=== PATIENT | female | born 2005 | race Caucasian/White ===

== ENCOUNTER 2025-08-01 15:45 | Inpatient (IN) | payer OTHER, SELFPAY ==
[2025-08-01] VITALS (14 sets, daily range): BP systolic 114–168; BP diastolic 68–88; PULSE 77–100; RESP 16–20; TEMP 36.7–37.4; O2SAT 94–96; BMI 32.1
[2025-08-01] MEDS: Lactated Ringers 1,000 ML 999 ML IV (16:00)
[2025-08-01 16:19] LABS: Hematocrit 37.4 % (37-47); Hemoglobin 12.5 g/dL (12.0-15.0); Immature Granulocytes Count 0.050 X10^3/uL (0.0-0.0); Mean Corp Hgb Conc 33.4 g/dL (32-36); Mean Corpuscular Volume 84.0 fL (81-99); Mean Platelet Vol. 11.5 fl (6.2-12.0); NRBC Flagged by Analyzer 0 % (0-5); Platelet Count 168 K/mm3 (150-450); RBC Distribution Width CV 14.0 % (11.6-14.6); RBC Distribution Width SD 43.1 fl (35.1-43.9); Red Blood Count 4.45 M/mm3 (4.2-5.4); White Blood Count 12.2 K/mm3 (4.4-11.0)
[2025-08-01 16:57] LABS: Mucous, Urine 0 SEEN /hpf (<or=2+)
[2025-08-01 17:03] LABS: Color, Urine Straw (Yellow); Glucose, Dipstick Normal (Normal); Ketone-Dipstick Negative (Negative); Leukocyte Esterase-Dipstick 100 /ul (Negative); Nitrite-Dipstick Negative (Negative); Occult Blood-Urine 250 /ul (Negative); Protein-Dipstick 15 mg/dl (Negative); Specific Gravity, Urine 1.010 (1.002-1.030); Urine Bilirubin Dipstick Negative (Negative)
[2025-08-01] MEDS: Lactated Ringers 1,000 ML 200 ML IV ×2 (17:10→22:07)
[2025-08-01] MEDS: fentaNYL-bupivacaine (epidural) 100 ML BAG EPIDURAL ×2 (17:23→22:01)
[2025-08-01 17:36] LABS: Hepatitis C Antibody Nonreactive (Nonreactive)
[2025-08-01 17:46] LABS: AST(SGOT) 20 U/L (<=31); Alanine Aminotransfer ALT/SGPT 16 U/L (<=34); Albumin, Serum 3.7 g/dL (3.5-5.0); Alkaline Phosphatase 98 U/L (35-104); Anion Gap 13 (5-15); BUN 8 mg/dL (4-19); BUN/Creat Ratio 17.1 RATIO (10-20); Calcium,Total 9.4 mg/dL (7.6-11.0); Carbon Dioxide 22.8 mmol/L (21.0-32.0); Chloride 104 mmol/L (98-108); Estimated Creatinine Clearance 172.75 ml/min (50-250); Globulin 2.3 g/dL (2.2-4.2); Glucose 87 mg/dL (70-99); HIV Nonreactive (Nonreactive); Potassium 4.1 mmol/L (3.3-5.1); Syphilis Antibodies Nonreactive (Nonreactive)
[2025-08-01 18:09] LABS: Squamous Epithelial Cells - UA 10-25 SEEN /hpf (5-10)
[2025-08-01 18:10] LABS: Red Blood Cells-Urine 5-10 SEEN /hpf (0-5)
[2025-08-01 18:11] LABS: Transitional Epithelial - Ur 0-5 SEEN /hpf (0-5)
[2025-08-01 18:26] LABS: Hepatitis B Surface Antigen Nonreactive (Nonreactive); Syphilis Antibodies Nonreactive (Nonreactive)
--- NOTE | 2025-08-01 18:44 | HP.PCM.OB_ITS ---
HPI - General General Date of Admission: 08/01/25 Date of Service: 08/01/25 Chief Complaint: labor HPI Narrative ASHLY MARINELLI, is a 20 F who presents in active labor. 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 They were unable to get an adequate cervical exam due to a band of tissue noted in the vagina and patient intolerance to exams. Because of this and the patient's desire for an epidural, she was transferred to [facility]. She is GBS negative. is otherwise complicated by rubella non-immune status. labs are up-to-date. Maternal Data Information Final MCKENZIE: 07/30/25 Final MCKENZIE Source: LMP Gestational age: 40w2d [facility] Medical History (Updated 08/01/25 @ 19:[address] Genoveva Coyle DO) Depression Medical History no medical history Home Medications ?Medication ?Instructions ?Recorded ?Last Taken ?Type docosahexaenoic acid PO 08/01/25 History Allergy/AdvReac Type Severity Reaction Status Date / Time No Known Allergies Allergy Verified 08/01/25 16:14 Family History (Updated 08/01/25 @ 18:35 by Craig Villanueva) Brother Colon cancer Sister Brain cancer Surgical History (Updated 08/01/25 @ 19:[address] Genoveva Coyle DO) No pertinent past surgical history Surgical History no surgical history Social History Smoking Status: Never smoker History 1 Elective abortions 0 Hx Para 0 Spontaneous abortions 0 Hx # Term Pregnancies 0 Ectopic pregnancies 0 Hx # Pregnancies 0 Multiple births 0 # of living children 0 NST FHR Rate Baby A Baseline: 150 Variability:: Moderate Accelerations:: 15 x 15 Decelerations:: Early, Late (isolated) and Variable (intermittent) NST Reactive:: Yes FHR Category:: Category II (variability and accelerations reassuring) Uterine Activity:: q2-4 min ROS ROS Narrative see HPI above Vital Signs Vital Signs Vital Signs: 08/01/25 16:12 08/01/25 16:12 08/01/25 16:12 Temperature Pulse Rate 83 Respiratory Rate 20 H Blood Pressure 168/77 H BP Systolic 168 BP Diastolic 77 08/01/25 16:12 08/01/25 16:14 08/01/25 16:14 Temperature 98.0 F Pulse Rate 82 Respiratory Rate Blood Pressure 148/70 H BP Systolic 148 BP Diastolic 70 08/01/25 17:14 08/01/25 17:14 08/01/25 17:19 Temperature Pulse Rate 80 Respiratory Rate Blood Pressure 134/82 H 134/80 H BP Systolic 134 134 BP Diastolic 82 80 08/01/25 17:19 08/01/25 17:19 08/01/25 17:30 Temperature Pulse Rate 83 Respiratory Rate 20 H Blood Pressure 122/76 H BP Systolic 122 BP Diastolic 76 08/01/25 17:30 08/01/25 17:30 08/01/25 17:35 Temperature Pulse Rate 95 Respiratory Rate 18 Blood Pressure 135/82 H BP Systolic 135 BP Diastolic 82 08/01/25 17:35 08/01/25 17:35 08/01/25 17:39 Temperature Pulse Rate 88 Respiratory Rate 17 Blood Pressure 132/78 H BP Systolic 132 BP Diastolic 78 08/01/25 17:39 08/01/25 17:44 08/01/25 17:44 Temperature Pulse Rate 93 96 Respiratory Rate Blood Pressure 126/81 H BP Systolic 126 BP Diastolic 81 08/01/25 17:49 08/01/25 17:49 Temperature Pulse Rate 91 Respiratory Rate Blood Pressure 124/79 H BP Systolic 124 BP Diastolic 79 Weight Weight: 170 lb Body Mass Index (BMI) 32.1 PRE- weight 125 lb PRE- Body Mass Index 23.6 (BMI) Physical Exam Const alert and well nourished General Appearance: comfortable HEENT normocephalic Head and Scalp: atraumatic Neck full ROM and supple Resp normal respiratory effort and no use of accessory muscles GI soft to palpation Inspection: gravid external exam normal Manual OB Exam: dilated 5, effaced 70 and station -2 Psych mental status grossly normal and affect normal Labs Labs Labs: Blood Type A POSITIVE Antibody Screen NEGATIVE Hct, (37-47) 37.4 % Hgb, (12.0-15.0) 12.5 g/dL Syphilis Total Ab, (Nonreactive) Nonreactive Rubella IgG Antibody, (Nonreactive) Nonreactive Hep Bs Antigen, (Nonreactive) Nonreactive Hepatitis C Antibody, (Nonreactive) Nonreactive HIV 1&2 Antibody, (Nonreactive) Nonreactive Assessment & Plan (1) Labor and delivery indication for care or intervention: PLAN: Patient presents IAL, plan expectant management for , pitocin/AROM PRN if needed. Pain management: epidural. GBS negative. Management of any complications: none I have reviewed the [facility] and made any clinically relevant updates. (2) Rubella non-immune status, antepartum: PLAN: offer MMR (3) Elevated blood pressure reading without diagnosis of hypertension: PLAN: BP recorded at visits wnl isolated severe range during a contraction and a few mild range BP today, not yet meeting criteria for gestational hypertension CBC and CMP without evidence of end organ damage
[2025-08-01] MEDS: LACTATED RINGERS 500 ML 999 ML IV ×2 (20:31→22:04)
--- NOTE | 2025-08-01 22:59 | PN_ITS ---
Progress Note Patient comfortable with epidural. AROM @2011 for small amount of clear fluid. Assessment & Plan Assessment/Plan (1) Labor and delivery indication for care or intervention: PLAN: Plan Category II due to periods of minimal variability and intermittent and non- severe variable decelerations. Acceleration with scalp stim reassuring. Resuscitative measures: position changes and fluid boluses. Patient continues to make cervical change. Continue to monitor. NST FHR Rate Baby A Baseline: 150 Variability:: Minimal and Moderate Accelerations:: 15 x 15 Decelerations:: Early, Late and Variable NST Reactive:: Yes FHR Category:: Category II Uterine Activity:: q2-3 min
[2025-08-01 23:32] LABS: Creatinine, Urine (random) 36.90 mg/dL (28.00-217.00); Protein, Urine (Random) 14.5 mg/dL (0.0-12.0); Protein:Creat Ratio 393 mg/g CRE (0-200)
[2025-08-01 23:35] LABS: Barbiturate Urine NEGATIVE (< 200 ng/mL); Benzodiazepine Urine NEGATIVE (< 200 ng/mL); PCP Urine NEGATIVE (< 25 ng/mL); THC Urine NEGATIVE (< 50 ng/mL)
--- NOTE | 2025-08-01 23:57 | PN.OBGYN_ITS ---
Subjective Subjective Meets criteria for preeclampsia without severe features due to mild range BP > 4 hours apart and UPC of 0.39 asymptomatic, no severe features at this time Objective Data Objective Data Vital Signs: Vital Signs Temp Pulse Resp BP Pulse Ox 99.0 F 77 16 140/88 H 94 08/01/25 22:59 08/01/25 22:59 08/01/25 22:59 08/01/25 22:59 08/01/25 20:46 Weight: 170 lb Body Mass Index (BMI) 32.1 Intake & Output: Intake and Output for Last 24 Hours 07/30/25 07/31/25 08/01/25 23:59 23:59 23:59 Intake Total 2990 / 2990 Output Total 300 / 300 Balance 2690 / 2690 Lab / Micro Data 08/01/25 16:00 08/01/25 16:00 Labs: Laboratory Results - last 24 hr 08/01/25 16:00: WBC 12.2 H, RBC 4.45, Hgb 12.5, Hct 37.4, MCV 84.0, MCH 28.1, MCHC 33.4, RDW Std Deviation 43.1, RDW Coeff of Iza 14.0, Plt Count 168, MPV 11.5, Immature Gran % (Auto) 0.400, Neut % (Auto) 75.1 H, Lymph % (Auto) 14.7 L, [place] % (Auto) 8.9, Eos % (Auto) 0.7, Baso % (Auto) 0.2, Absolute Neuts (auto) 9.2 H, Absolute Lymphs (auto) 1.80, Nucleated RBC % 0, Sodium 140, Potassium 4.1, Chloride 104, Carbon Dioxide 22.8, Anion Gap 13, BUN 8, Creatinine 0.48 L, Estim Creat Clear Calc 172.75, Est GFR (MDRD) Non-Af 137, BUN/Creatinine Ratio 17.1, Glucose 87, Hemoglobin A1c 5.5, Calcium 9.4, Total Bilirubin 0.23, AST 20, ALT 16, Alkaline Phosphatase 98, Total Protein 5.9, Albumin 3.7, Globulin 2.3, Albumin/Globulin Ratio 1.6, Syphilis Total Ab Nonreactive 08/01/25 16:00: Syphilis Total Ab Nonreactive, Hep Bs Antigen Nonreactive, Hepatitis C Antibody Nonreactive, HIV 1&2 Antibody Nonreactive, Rubella IgG Antibody Nonreactive, Blood Type A POSITIVE, Antibody Screen NEGATIVE 08/01/25 16:40: Urine Color Straw, Urine Clarity Sl. Cloudy, Urine pH 7.0, Ur Specific [place] 1.010, Urine Protein 15 H, Urine Glucose (UA) Normal, Urine Ketones Negative, Urine Occult Blood 250 H, Urine Nitrite Negative, Urine Bilirubin Negative, Urine Urobilinogen Normal, Ur Leukocyte Esterase 100 H, Urine RBC 5-10 SEEN, Urine WBC 5-10 SEEN, Ur Squamous Epith Cells 10-25 SEEN, Ur Transition Epith Cell 0-5 SEEN, Urine Bacteria RARE, Urine Mucus 0 SEEN, U Random Total Protein 14.5 H, Urine Creatinine 36.90, Protein/Creatinin Ratio 393 H, Urine Opiates Screen NEGATIVE, U Buprenorphine Qual NEGATIVE, Ur Oxycodone Screen NEGATIVE, Urine Methadone Screen NEGATIVE, Urine Fentanyl Screen NEGATIVE, Ur Barbiturates Screen NEGATIVE, Ur Phencyclidine Scrn NEGATIVE, Ur Amphetamines Screen NEGATIVE, U Benzodiazepines Scrn NEGATIVE, Urine Cocaine Screen NEGATIVE, U Cannabinoids Screen NEGATIVE, Ur Drug Screen Comment
[2025-08-02] VITALS (32 sets, daily range): BP systolic 109–158; BP diastolic 56–103; PULSE 74–109; RESP 14–17; TEMP 36.4–39.1; O2SAT 84–130
[2025-08-02] MEDS: LACTATED RINGERS 500 ML 999 ML IV (01:06)
[2025-08-02] MEDS: Gentamicin IV 240 MG in Dextrose 5%-Water (50mL Bag) 50 ML 100 MG IV (01:48)
[2025-08-02] MEDS: Ampicillin 2 GM in 0.9% Normal Saline (100mL MB+) 100 ML IV ×2 (02:49→13:21)
[2025-08-02] MEDS: fentaNYL-bupivacaine (epidural) 100 ML BAG EPIDURAL (03:45)
--- NOTE | 2025-08-02 05:08 | PN.OBGYN_ITS ---
Subjective Subjective Patient has been pushing for ~3 hours with minimal descent. Maternal fever (102.3) and tachycardia (170-180s) noted during pushing so patient was treated with tylenol, ampicillin, and gentamicin for intraamniotic infection. FHT category II due to tachycardia and intermittent variable and late decelerations with pushing. Moderate variability and accelerations still present. Discussed with patient concern with lack of progress and well- being. station too high to safely vacuum so delivery was recommended. Patient and her are agreeable to this plan. Objective Data Objective Data Vital Signs: Vital Signs Temp Pulse Resp BP Pulse Ox 98.7 F 91 16 147/82 H 84 08/02/25 03:47 08/02/25 05:00 08/02/25 03:47 08/02/25 04:47 08/02/25 05:00 Weight: 170 lb Body Mass Index (BMI) 32.1 Intake & Output: Intake and Output for Last 24 Hours 07/31/25 08/01/25 08/02/25 23:59 23:59 23:59 Intake Total 2990 / 2990 656 / 656 Output Total 300 / 300 Balance 2690 / 2690 656 / 656 Lab / Micro Data 08/01/25 16:00 08/01/25 16:00 Labs: Laboratory Results - last 24 hr 08/01/25 16:00: WBC 12.2 H, RBC 4.45, Hgb 12.5, Hct 37.4, MCV 84.0, MCH 28.1, MCHC 33.4, RDW Std Deviation 43.1, RDW Coeff of Iza 14.0, Plt Count 168, MPV 11.5, Immature Gran % (Auto) 0.400, Neut % (Auto) 75.1 H, Lymph % (Auto) 14.7 L, [place] % (Auto) 8.9, Eos % (Auto) 0.7, Baso % (Auto) 0.2, Absolute Neuts (auto) 9.2 H, Absolute Lymphs (auto) 1.80, Nucleated RBC % 0, Sodium 140, Potassium 4.1, Chloride 104, Carbon Dioxide 22.8, Anion Gap 13, BUN 8, Creatinine 0.48 L, Estim Creat Clear Calc 172.75, Est GFR (MDRD) Non-Af 137, BUN/Creatinine Ratio 17.1, Glucose 87, Hemoglobin A1c 5.5, Calcium 9.4, Total Bilirubin 0.23, AST 20, ALT 16, Alkaline Phosphatase 98, Total Protein 5.9, Albumin 3.7, Globulin 2.3, Albumin/Globulin Ratio 1.6, Syphilis Total Ab Nonreactive 08/01/25 16:00: Syphilis Total Ab Nonreactive, Hep Bs Antigen Nonreactive, Hepatitis C Antibody Nonreactive, HIV 1&2 Antibody Nonreactive, Rubella IgG Antibody Nonreactive, Blood Type A POSITIVE, Antibody Screen NEGATIVE 08/01/25 16:40: Urine Color Straw, Urine Clarity Sl. Cloudy, Urine pH 7.0, Ur Specific [place] 1.010, Urine Protein 15 H, Urine Glucose (UA) Normal, Urine Ketones Negative, Urine Occult Blood 250 H, Urine Nitrite Negative, Urine Bilirubin Negative, Urine Urobilinogen Normal, Ur Leukocyte Esterase 100 H, Urine RBC 5-10 SEEN, Urine WBC 5-10 SEEN, Ur Squamous Epith Cells 10-25 SEEN, Ur Transition Epith Cell 0-5 SEEN, Urine Bacteria RARE, Urine Mucus 0 SEEN, U Random Total Protein 14.5 H, Urine Creatinine 36.90, Protein/Creatinin Ratio 393 H, Urine Opiates Screen NEGATIVE, U Buprenorphine Qual NEGATIVE, Ur Oxycodone Screen NEGATIVE, Urine Methadone Screen NEGATIVE, Urine Fentanyl Screen NEGATIVE, Ur Barbiturates Screen NEGATIVE, Ur Phencyclidine Scrn NEGATIVE, Ur Amphetamines Screen NEGATIVE, U Benzodiazepines Scrn NEGATIVE, Urine Cocaine Screen NEGATIVE, U Cannabinoids Screen NEGATIVE, Ur Drug Screen Comment
[2025-08-02] MEDS: fentaNYL 100 MCG/2 ML Ampul EPIDURAL (05:32)
[2025-08-02] MEDS: morphine PF (epidural) 5 MG/10 ML Vial 3 MG EPIDURAL (06:25)
[2025-08-02] MEDS: fentaNYL 100 MCG/2 ML Ampul IV (06:36)
[2025-08-02] MEDS: Midazolam 2 MG/2 ML Syringe IV (06:39)
[2025-08-02] MEDS: Lidocaine 2% (5ml sdv) 5 ML VIAL.MPF 25 ML EPIDURAL (06:47)
--- NOTE | 2025-08-02 07:26 | PCM.POST.ANE ---
Anesthesia: Postop Eval I Current Vital Signs Temperature: 98 F Pulse Rate: 90 Blood Pressure: 137/103 Respiratory Rate: 16 Pulse Ox: 100 Oxygen Delivery Method: Room Air Assessment Airway patent: Yes Spontaneous unlabored respirations: Yes Mental status: Awake and Calm nausea: No Vomiting: No Anesthesia Complication: No Fluid Hydration Crystalloid volume administer (ml): 1,500 Total IV fluid infused: 1,500 Progress Note Anesthesia document: Postop Eval 1 completed: Yes
[2025-08-02] MEDS: Cefazolin 1 GM/5 ML Vial 4 GM IV (07:29)
--- NOTE | 2025-08-02 07:36 | POSTOPAN2_ITS ---
Anesthesia Postop Eval I Sum Postop Eval Completion status Anesthesia document: Postop Eval 1 completed: Yes Anesthesia Postop Eval I Summary Anesthesia Postop Eval I Summary: Anesthesia Postop Eval I: Assessment Summary Airway patent Yes 08/02/25 07:26 [email or web address] Spontaneous unlabored Yes 08/02/25 07:26 [email or web address] respirations Mental status Awake,Calm 08/02/25 07:26 [email or web address] nausea No 08/02/25 07:26 [email or web address] Vomiting No 08/02/25 07:26 [email or web address] Anesthesia Postop Eval I: Fluid Summary Crystalloid volume administer 1,500 08/02/25 07:26 [email or web address] (ml) Colloids volume administered ( ml) Blood Product volume administered (ml) Total IV fluid infused 1,500 08/02/25 07:26 [email or web address] Anesthesia Postop Eval I: Summary Notes Anesthesia Complication No 08/02/25 07:26 [email or web address] Anesthesia Complication Comment: Post-operative progress note Anesthesia: Postop Eval II Evaluation Mental status: Awake and Calm Pain Level: 0 nausea: No Vomiting: No Complications Anesthesia Complication: No
--- NOTE | 2025-08-02 07:36 | PCM.POSTANE2 ---
Anesthesia Postop Eval I Sum Postop Eval Completion status Anesthesia document: Postop Eval 1 completed: Yes Anesthesia Postop Eval I Summary Anesthesia Postop Eval I Summary: Anesthesia Postop Eval I: Assessment Summary Airway patent Yes 08/02/25 07:26 [email or web address] Spontaneous unlabored Yes 08/02/25 07:26 [email or web address] respirations Mental status Awake,Calm 08/02/25 07:26 [email or web address] nausea No 08/02/25 07:26 [email or web address] Vomiting No 08/02/25 07:26 [email or web address] Anesthesia Postop Eval I: Fluid Summary Crystalloid volume administer 1,500 08/02/25 07:26 [email or web address] (ml) Colloids volume administered ( ml) Blood Product volume administered (ml) Total IV fluid infused 1,500 08/02/25 07:26 [email or web address] Anesthesia Postop Eval I: Summary Notes Anesthesia Complication No 08/02/25 07:26 [email or web address] Anesthesia Complication Comment: Post-operative progress note Anesthesia: Postop Eval II Evaluation Mental status: Awake and Calm Pain Level: 0 nausea: No Vomiting: No Complications Anesthesia Complication: No
[2025-08-02] MEDS: Oxytocin 15 Units/NS 250ml 15 UNITS/250 ML IV.SOLN 83 UNITS IV (07:45)
--- NOTE | 2025-08-02 08:36 | OP.PCM_ITS ---
Maternal Data Information MCKENZIE Calculator Estimated Delivery Date Method Current WG Current Estimate 07/30/25 Manual 40w 3d Gestational age: 40w3d Doctor Who Attended Delivery: Rozina Franks Operative Report (OB) Procedure Details Date of Procedure: 08/02/25 Procedure Start Time: 05:59 Procedure Stop Time: 07:35 Pre-Operative Diagnosis: Failure of Descent, Nonreassuring Status, Suspected chorioamnionitis (Suspected Triple I), Suspected cephalopelvic disproportion and Other Other Pre-Operative diagnosis: preeclampsia without severe features Post-Operative Diagnosis: Same as Pre-operative diagnosis Classification: JACE Type of Anesthesia: Epidural Antibiotic Given: Ancef 2 grams IV x1 (re-dosed for EBL), Clindamycin 600mg IV x1 and Gentamicin 1.5mg/kg IV x1 and Other (ampicillin 2g IV q6h) Drain: Waters to straight drain Estimated Blood Loss: 1500 Findings Description of surgery: Lorene Jameson is a 20-year-old, now , who presented at 40w2d as a transfer from a midwifery care center in active labor. She was GBS negative. was complicated by rubella non-immune status. She received an epidural for maternal analgesia. AROM was performed to augment labor. Intrapartum, she met criteria for intraamniotic infection with maternal fever and tachycardia and was treated with tylenol and antibiotics. She also met criteria for preeclampsia without severe features due to elevated blood pressures >4 hours apart and a UPC of 0.39. She progressed to complete cervical dilation and pushed for approximately 3 hours with little descent of head. Also during pushing a hymenal laceration occurred which became hemostatic on its own. Due to failure of descent with too high of a station for safe operative delivery and a category II FHT, primary was recommended and accepted. Her epidural anesthesia was redosed adequately initially. Waters catheter was placed. pillow was placed. The patient was placed in the dorsal supine position with leftward tilt. Patient was prepped and draped in the normal sterile fashion. Pfannenstiel skin incision was made with the scalpel and carried through to the underlying layer of fascia with the scalpel. Fascia was nicked in the midline and the incision extended laterally. The rectus bellies were dissected off superiorly and inferiorly with out complication both sharply and bluntly. The peritoneum was entered digitally. The incision was stretched and a low transverse uterine incision was made with the scalpel. There was difficulty disimpacting the head. The pillow was removed and a hand from below was requested without successful delivery of the head. Dr. Bajwa was called to the OR for assistance and then infant's head was delivered followed by the anterior and posterior shoulders without complication the rest of the delivered. The cord was immediately clamped and cut and the was handed off to awaiting nurse. The placenta was delivered spontaneously immediately following and was noted to be intact and have a three- vessel cord. The uterus was exteriorized cleared of all clots and debris. The angles of the cervical extension were identified and closed with 0 Vicryl. The hysterotomy was closed in a double layer closure using 0 Vicryl. Several [id number] stitches at the hysterotomy angles + broad ligament defect and oversewing of the cervical extension were done with 0 Vicryl and #1 Monocryl to ensure hemostasis. There was a stitch noted through the epiploica of the sigmoid colon which was removed and examined, demonstrating no damage to the lumen of the colon therefore not requiring repair. The ovaries and fallopian tubes were noted to be within normal limits. The uterus was returned to the maternal abdomen and gutters were cleared of all clots and debris. The peritoneum was closed with 3-0 Monocryl in a running fashion. Gloves were changed prior to fascial closure. Fascia was closed with 0 PDS in a running fashion. Subcutaneous tissue was copiously irrigated and the skin was closed with 3-0 Monocryl in a subcuticular fashion. Mepilex dressing was applied without complication. The patient was then placed in dorsal lithotomy to re-evaluate the hymenal laceration which remained hemostatic and was therefore not repaired. Antibiotics were re-dosed due to EBL of 1500 cc. Patient was taken to recovery in stable condition. Surgical findings: extensions of hysterotomy laterally and on cervix, defect in broad ligament normal appearing tubes and ovaries liveborn male infant Presentation: ROP Amniotic Membrane Rupture Type: Artificial Amniotic Fluid Description: Clear and Lightly stained meconium Placental Delivery Description: Spontaneous Placenta Disposition: Sent with transport team Specimen collected: Yes Description of specimen(s) removed: placenta Cord Vessel Description: 3 Vessels Cord Entanglement: None Infant A gender: Male (1 minute): 1 (5 minute): 8 Delayed Cord Clamping: No Calendar Control Clerk Blood Bank bottle carrier: Yes Reimbursement Specialist: Stacey Bajwa Tasks completed by child nutrition assistant: Other (delivery of head, repair of hysterotomy extensions) Additional assistant front office manager?: Yes Additional General Maintenance Technician #2: Carla Coto Tasks completed by assistant front office manager #2: Opening & closing, Hemostasis: Clamp and Retracting Complications Complications: Yes Complication Details: deeply impacted head, cervical and hysterotomy extensions, broad ligament defect
--- NOTE | 2025-08-02 09:20 | NURSING ---
documentation revised by Berta after speaking with Mitra Hein by phone, removed check kamilah entered in error.
[2025-08-02] MEDS: Lactated Ringers 1,000 ML 100 ML IV (11:24)
[2025-08-02] MEDS: 0.9% Saline Lock 10 ML Syringe IV (14:20)
[2025-08-02] MEDS: Ketorolac 30 MG/ML Syringe IV ×2 (14:20→20:37)
[2025-08-03 00:13] VITALS: BP 103/64; PULSE 70; RESP 16; TEMP 36.6; O2SAT 97
[2025-08-03] MEDS: Ketorolac 30 MG/ML Syringe IV (03:49)
[2025-08-03 04:20] VITALS: BP 109/78; PULSE 80; RESP 18; TEMP 36.7; O2SAT 97
[2025-08-03 06:52] LABS: Hematocrit 26.6 % (37-47); Hemoglobin 8.7 g/dL (12.0-15.0); Mean Corp Hgb Conc 32.7 g/dL (32-36); Mean Corpuscular Volume 84.7 fL (81-99); Mean Platelet Vol. 10.6 fl (6.2-12.0); Platelet Count 113 K/mm3 (150-450); RBC Distribution Width CV 14.5 % (11.6-14.6); RBC Distribution Width SD 44.9 fl (35.1-43.9); Red Blood Count 3.14 M/mm3 (4.2-5.4); White Blood Count 15.4 K/mm3 (4.4-11.0)
--- NOTE | 2025-08-03 08:24 | PCM.PN.BLA ---
Progress Note Patient doing well without complaints. No nausea with PO intake but some abdominal discomfort. Feeling sore. Not yet passing flatus or urinating spontaneously. Has not ambulated much. Denies chest pain, shortness of breath, calf pain/swelling, fevers, chills, lightheadedness. Was told baby is doing well at [facility] and will probably stay there 3-5 days. Physical Exam Const alert, oriented x3 and no apparent distress HEENT Head and Scalp: normocephalic and atraumatic Resp normal respiratory effort Effort and Inspection: able to speak in complete sentences and symmetric chest movement Cardio regular rate and regular rhythm GI soft to palpation and non-tender Inspection: incision intact, healing well and drainage (none) Bimanual Exam - Vag & Uterus: uterus non-tender Uterus Palpation: uterus fundus firm (below Umbilicus) Assessment & Plan Assessment/Plan (1) delivery delivered: PLAN: s/p LTCS PPD # 1 1. routine post care 2. breast feeding- support given 3. rh positive 4. rubella non-immune, offer MMR vaccine 5. awaiting spontaneous void (2) Pre-eclampsia affecting , antepartum: PLAN: -met criteria intrapartum for preeclampsia without severe features with mild range BP >4 hours apart and UPC of 0.39 -CBC and CMP without signs of end organ damage -BP since delivery normal to mild range -discussed with patient continued admission to monitor BP, she and FOB voiced understanding (3) hemorrhage: QUALIFIERS: hemorrhage type: other immediate Qualified Code(s): O72.1 - Other immediate hemorrhage PLAN: -EBL 1500cc due to length of delivery and hysterotomy closure -hgb 12.5 -> 8.7 -patient asymptomatic currently -discussed iron infusion if symptomatic during the day
[2025-08-03 08:44] VITALS: BP 126/89; PULSE 79; RESP 16; TEMP 36; O2SAT 99
[2025-08-03] MEDS: Senna/Docusate Sodium 1 Tablet PO (09:50)
[2025-08-03 13:59] VITALS: BP 126/79; PULSE 77; RESP 16; TEMP 36.1; O2SAT 98
[2025-08-03 20:05] VITALS: BP 137/98; PULSE 70; RESP 16; TEMP 36.6; O2SAT 100
[2025-08-04 02:00] VITALS: BP 136/93; PULSE 77; RESP 16; TEMP 36.1; O2SAT 100
[2025-08-04 07:42] VITALS: BP 130/94; PULSE 70; RESP 16; TEMP 36.5; O2SAT 99
[2025-08-04 09:30] VITALS: BP 127/86
[2025-08-04] MEDS: NIFEdipine 30 MG Tablet PO (09:46)
[2025-08-04] MEDS: Senna/Docusate Sodium 1 Tablet PO (09:47)
--- NOTE | 2025-08-04 10:00 | PCM.DC ---
Discharge Instructions DC O2, CPAP, BIPAP needs Home O2 Discharge instructions: No Dressing / Incision Discharge Activity: May Shower May shower in (days): 0 May resume sexual activity in: 6-8 weeks Weight Bearing Status: Weight bearing as tolerated Lifting Restrictions: notihng greater than 15 lbs Dressing / Incision Call your doctor if your incision/area has: Continuous Slow Oozing, Sudden Increased Bleeding, Increased Pain/ Swelling, Increased Redness and Foul Smelling Discharge Call your doctor if you observe: Fever of 101 or Higher and Using more than 1 pad per hour (for 2 hours) Suture Line Care: Avoid Pulling/Pushing and Avoid Pinching/Bending Remove Dressing in: 1 week Cleanse incision/area with: Soap & Water and Keep Dressing Clean & Dry Follow Up Care When: Follow-up next Wednesday for a BP check and then an incision check in 1-2 weeks. Test Results: Test results from this visit will be discussed in further detail at your follow-up appointment, if applicable. Discharge Plan Admission Admit Date/Time: 08/01/25 15:45 Primary Reason for Your Visit: labor and delivery Attending Provider: Genoveva Coyle Primary Care Provider: Valeria Edwards NP Instructions Additional Instructions / Restrictions: Please start taking your blood pressure medication, Procardia XL 30mg daily, and check your blood pressure at least 2 times a day. If you check you blood pressure and your systolic (top number) is >160 or your diastolic (bottom number) is >110, then you should be seen at OB triage. The accurate way to take a blood pressure: ? Don?t eat or drink anything 30 minutes before you take your blood pressure. ? Empty your bladder before your reading. ? Sit in a comfortable chair with your back supported for at least 5 minutes before your reading. ? Put both feet flat on the ground and keep your legs uncrossed. ? Rest your arm with the cuff on a table at chest height. ? Make sure the blood pressure cuff is snug but not too tight. The cuff should be against your bare skin, not over clothing. ? Do not talk while your blood pressure is being measured. What are the symptoms of preeclampsia? Most women with preeclampsia do not feel any different than usual. Preeclampsia usually does not cause symptoms unless it is severe. Signs and symptoms of severe preeclampsia include: ? A severe headache that does not improve with Tylenol or medication ? Changes in vision: blurry vision, flashes of light, spots ? Abdominal pain: especially in the upper belly ? Shortness of breath at rest ? Chest pain If you have any of these symptoms, check your blood pressure and call the office to speak to the production pattern maker physician. Please follow up in the office on Wednesday for a blood pressure check. Discharge Orders/Prescriptions Prescriptions: New nifedipine 30 mg Tablet Extended Release 24hr 30 mg PO DAILY 90 Days Qty: 90 0RF acetaminophen 500 mg Tablet 1,000 mg PO Q6 14 Days Qty: 112 0RF ibuprofen 600 mg Tablet 600 mg PO Q6H 14 Days Qty: 56 0RF oxycodone 5 mg tablet 5 mg PO Q6H PRN (Reason: pain) 3 Days Qty: 14 0RF (DME) Blood Pressure Cuff Misc See Rx Instructions .Route Qty: 1 0RF Rx Instructions: twice a day Continued docosahexaenoic acid [ DHA] PO Referrals / Follow Up: Valeria Edwards TIN FLOPPER, TIN FLOPPER-C [Primary Care Provider, Medical] Disposition Disposition (needs filled in before D/C Order can be placed): Home, Self Care
--- NOTE | 2025-08-04 10:23 | PCM.PN.BLA ---
Progress Note Patient doing well without complaints. Pain is better controlled today. Tolerating PO. Ambulating and voiding without difficulty. Passing flatus. Denies chest pain, shortness of breath, calf pain/swelling, fevers, chills, lightheadedness. Would like to be discharged today to make it to her brother's and see the baby at [place]. Physical Exam Const alert, oriented x3 and no apparent distress HEENT Head and Scalp: normocephalic and atraumatic Resp normal respiratory effort Effort and Inspection: able to speak in complete sentences and symmetric chest movement Cardio regular rate and regular rhythm GI soft to palpation and non-tender Inspection: incision intact, healing well and drainage (none) Bimanual Exam - Vag & Uterus: uterus non-tender Uterus Palpation: uterus fundus firm (below Umbilicus) Assessment & Plan Assessment/Plan (1) delivery delivered: PLAN: s/p LTCS PPD # 2 1. routine post care 2. breast feeding- support given 3. rh positive 4. rubella non-immune, offer MMR 5. d/c today with close follow-up (2) Pre-eclampsia affecting , antepartum: PLAN: -BP have been normal to mild range -Will start Procardia XL 30mg daily -BP cuff ordered and patient advised to check BP 2x/day and if feeling symptomatic -Preeclampsia precautions reviewed extensively, can go to [place] [facility] if visiting baby -Patient will follow up in the office for a BP check on Wednesday
--- NOTE | 2025-08-04 10:28 | PCM.DC.SUM ---
Providers Date of Admission: 08/01/25 Primary Care Physician: Valeria Edwards, MEDICAL OFFICE MANAGER-C Reason For Visit: PRIM CSECTION DELIVERY Diagnosis Discharge Diagnosis (1) delivery delivered: Status: Acute Code(s): O82 - Encounter for delivery without indication Plan: s/p LTCS PPD # 2 1. routine post care 2. breast feeding- support given 3. rh positive 4. rubella non-immune, offer MMR 5. d/c today with close follow-up (2) Pre-eclampsia affecting , antepartum: Status: Acute Code(s): O14.90 - Unspecified pre-eclampsia, unspecified trimester Plan: -BP have been normal to mild range -Will start Procardia XL 30mg daily -BP cuff ordered and patient advised to check BP 2x/day and if feeling symptomatic -Preeclampsia precautions reviewed extensively, can go to [place] ED if visiting baby -Patient will follow up in the office for a BP check on Wednesday Medications at Discharge Home Medications docosahexaenoic acid PO 08/01/25 acetaminophen 500 mg tablet 1,000 mg (2 x 500 mg) PO Q6 14 days #112 tabs 08/04/25 ibuprofen 600 mg tablet 600 mg PO Q6H 14 days #56 tabs 08/04/25 miscellaneous medical supply (Blood Pressure Cuff) #1 ea 08/04/25 nifedipine 30 mg tablet,extended release 24 hr 30 mg PO DAILY 90 days #90 tabs 08/04/25 oxycodone 5 mg tablet 5 mg PO Q6H PRN pain 3 days #14 tabs 08/04/25 Weight / BMI Weight Weight: 170 lb Body Mass Index (BMI) 32.1 PRE- weight 125 lb PRE- Body Mass Index 23.6 (BMI) ABG / Lab / Microbiology Data 08/03/25 06:45 08/01/25 16:00 D/C Instructions May shower in (days): 0 May resume sexual activity in: 6-8 weeks Weight Bearing Status: Weight bearing as tolerated Call your doctor if your incision/area has: Continuous Slow Oozing, Sudden Increased Bleeding, Increased Pain/ Swelling, Increased Redness and Foul Smelling Discharge Call your doctor if you observe: Fever of 101 or Higher and Using more than 1 pad per hour (for 2 hours) Suture Line Care: Avoid Pulling/Pushing and Avoid Pinching/Bending Cleanse incision/area with: Soap & Water and Keep Dressing Clean & Dry DC O2, CPAP, BIPAP Needs Home O2 Discharge instructions: No When: Follow-up next Wednesday for a BP check and then an incision check in 1-2 weeks. Meaningful Use Info Meaningful Use Meaningful Use Diagnoses (Choose all that apply): None applicable Discharge Plan Admission Admit Date/Time: 08/01/25 15:45 Primary Reason for Your Visit: labor and delivery Attending Provider: Genoveva Coyle Primary Care Provider: Valeria Edwards MEDICAL OFFICE MANAGER Instructions Patient Instructions: After a Delivery (WP) Additional Instructions / Restrictions: Please start taking your blood pressure medication, Procardia XL 30mg daily, and check your blood pressure at least 2 times a day. If you check you blood pressure and your systolic (top number) is >160 or your diastolic (bottom number) is >110, then you should be seen at OB triage. The accurate way to take a blood pressure: ? Don?t eat or drink anything 30 minutes before you take your blood pressure. ? Empty your bladder before your reading. ? Sit in a comfortable chair with your back supported for at least 5 minutes before your reading. ? Put both feet flat on the ground and keep your legs uncrossed. ? Rest your arm with the cuff on a table at chest height. ? Make sure the blood pressure cuff is snug but not too tight. The cuff should be against your bare skin, not over clothing. ? Do not talk while your blood pressure is being measured. What are the symptoms of preeclampsia? Most women with preeclampsia do not feel any different than usual. Preeclampsia usually does not cause symptoms unless it is severe. Signs and symptoms of severe preeclampsia include: ? A severe headache that does not improve with Tylenol or medication ? Changes in vision: blurry vision, flashes of light, spots ? Abdominal pain: especially in the upper belly ? Shortness of breath at rest ? Chest pain If you have any of these symptoms, check your blood pressure and call the office to speak to the career technical education instructor physician. Please follow up in the office on Wednesday for a blood pressure check. Discharge Orders/Prescriptions Prescriptions: New nifedipine 30 mg Tablet Extended Release 24hr 30 mg PO DAILY 90 Days Qty: 90 0RF acetaminophen 500 mg Tablet 1,000 mg PO Q6 14 Days Qty: 112 0RF ibuprofen 600 mg Tablet 600 mg PO Q6H 14 Days Qty: 56 0RF oxycodone 5 mg tablet 5 mg PO Q6H PRN (Reason: pain) 3 Days Qty: 14 0RF (DME) Blood Pressure Cuff Misc See Rx Instructions .Route Qty: 1 0RF Rx Instructions: twice a day Continued docosahexaenoic acid [ DHA] PO Referrals / Follow Up: Valeria Edwards MEDICAL OFFICE MANAGER, MEDICAL OFFICE MANAGER-C [Primary Care Provider, Medical] Disposition Disposition (needs filled in before D/C Order can be placed): Home, Self Care
[2025-08-04 10:50] VITALS: BP 141/98; TEMP 36.1
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
== END 2025-08-04 12:05 | disposition home or self-care (01) | DRG 786 ==
LOC: WPOUT 15:52 → WP 15:52
PROVIDERS: Admitting Provider Student in an Organized Health Care Education/Training Program; PCP Nurse Practitioner Family; Referring Provider Student in an Organized Health Care Education/Training Program; Visit Provider Student in an Organized Health Care Education/Training Program
DX: O76 Abnormality in fetal heart rate and rhythm complicating labor and delivery (principal); O41.1230 Chorioamnionitis, third trimester, not applicable or unspecified; O75.2 Pyrexia during labor, not elsewhere classified; O14.04 Mild to moderate pre-eclampsia, complicating childbirth; Z37.0 Single live birth; O33.9 Maternal care for disproportion, unspecified; O32.4XX0 Maternal care for high head at term, not applicable or unspecified; O77.0 Labor and delivery complicated by meconium in amniotic fluid; Z3A.40 40 weeks gestation of pregnancy
CPT/HCPCS: 59025; 59050; 80053; 80307; 81001; 82570; 83036; 84156; 85025; 85027; 86703; 86762; 86780; 86803; 86850; 86900; 86901; 87340; 99221; A4216; G0378